=== PATIENT | female | born 1995 | race African-American/Black ===

== ENCOUNTER 2017-03-16 21:36 | Emergency (ER) | payer OTHER ==
[~2017-03-16] VITALS: Ht 165.1 cm; Wt 78.0 kg
--- NOTE | ~2017-03-16 | EKG ---
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
[~2017-03-16 21:36] MED LIST: ABILIFY20 MG; IBUPROFEN 600600 M1 PO; IBUPROFEN 800800 M1 PO; LAMICTAL 25 MG25 M1; LORATIDINE 10 M10 M1; NAPROSYN500 MG; NAPROSYN500 MG PO; PRENATAL COMPL1 EACH PO; PRENATAL VITAM1 EAC1 PO; TYLENOL W/CODEI1 TA2 PO; VENTOLIN HFA 1818 GM INH; ZOFRAN ODT4 MG PO
[2017-03-16 22:38] LABS: ABSOLUTE NEUTROPHILS 1.8 thou/uL (1.4-8.2); BASOPHILS 0.5 % (0.0-2.0); EOSINOPHILS 6.9 % (0.0-3.0); HEMATOCRIT 37.3 % (37.0-47.0); HEMOGLOBIN 12.2 gm/dL (12.0-15.0); LYMPHOCYTES 35.9 % (24.0-44.0); MCH 26.7 pg (26.0-34.0); MCHC 32.8 g/dL (28.0-37.0); MCV 81.5 fL (80.0-100.0); MONOCYTES 11.6 % (1.0-8.0); PLATELET COUNT 239 thou/uL (150-400); POLYS 45.1 % (36.0-66.0); RBC 4.58 mil/uL (4.20-5.00); RDW 13.5 % (10.5-14.5)
[2017-03-16 22:41] LABS: MANUAL DIFF NO
[2017-03-16 22:46] LABS: ANION GAP 6 mmol/L (7-16); BUN 7 mg/dL (7-18); CALCIUM 8.9 mg/dL (8.5-10.1); CHLORIDE 106 mmol/L (98-107); CO2 27 mmol/L (21-32); CREATININE 0.7 mg/dL (0.6-1.0); GLUCOSE 104 mg/dL (74-106); POTASSIUM 3.3 mmol/L (3.5-5.1); SODIUM 139 mmol/L (136-145)
[2017-03-16 22:57] LABS: ALBUMIN 3.5 g/dL (3.4-5.0); ALKALINE PHOSPHATASE 42 U/L (46-116); NT-PRO BRAIN NAT PEPTIDE 20 pg/mL (<300); SGOT 16 U/L (15-37); SGPT 12 U/L (30-65); TOTAL BILIRUBIN 0.2 mg/dL (<0.1-1.0); TOTAL PROTEIN 7.2 g/dL (6.4-8.2); TROPONIN-I < 0.04 ng/mL (<0.04-0.07)
[2017-03-17 00:07] VITALS: BP 115/57
== END 2017-03-17 00:15 | disposition home or self-care (01) ==
LOC: ER 21:36
PROVIDERS: Emergency Medicine
DX: R07.89 Other chest pain (principal); J45.909 Unspecified asthma, uncomplicated; K21.9 Gastro-esophageal reflux disease without esophagitis; Z91.018 Allergy to other foods; Z91.013 Allergy to seafood; Z88.8 Allergy status to other drugs, medicaments and biological substances

== ENCOUNTER 2017-05-17 14:28 | Emergency (ER) | payer OTHER ==
[~2017-05-17] VITALS: Ht 165.1 cm; Wt 77.1 kg
[2017-05-17] MEDS ORDERED: NAPROSYN500 MG PO (15:58)
[2017-05-17 16:15] VITALS: BP 132/41
== END 2017-05-17 16:30 | disposition home or self-care (01) ==
LOC: ER 14:28
DX: S66.911A Strain of unspecified muscle, fascia and tendon at wrist and hand level, right hand, initial encounter (principal); N64.4 Mastodynia; J45.909 Unspecified asthma, uncomplicated; F39 Unspecified mood [affective] disorder; Z91.018 Allergy to other foods; Z91.013 Allergy to seafood; Z88.8 Allergy status to other drugs, medicaments and biological substances; X58.XXXA Exposure to other specified factors, initial encounter; Y93.89 Activity, other specified; Y92.89 Other specified places as the place of occurrence of the external cause; Y99.8 Other external cause status

== ENCOUNTER 2018-04-21 11:44 | Emergency (ER) | payer OTHER ==
[~2018-04-21] VITALS: Ht 165.1 cm; Wt 72.6 kg
--- NOTE | ~2018-04-21 | EKG ---
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1995 Requested By: Shaan David Order Number: [id number] MD: Dimitrios Mitchell Measurements Intervals [place] Rate: 89 P: -79 SD: 107 QRS: 22 QRSD: 87 T: -50 QT: 360 QTc: 439 Interpretive Statements Ectopic atrial rhythm Short SD interval LVH by voltage Abnormal T, consider ischemia, diffuse leads Compared to ECG 03/16/2017 22:06:34 Ectopic atrial rhythm now present Short SD interval now present T-wave abnormality now present Electronically Signed On 04-21-2018 16:34:14 CDT by Dimitrios Mitchell [email or web address] <ELECTRONICALLY SIGNED> By: Dimitrios Mitchell MD, [facility] 04/21/18 1634 1333 1333 Dimitrios Mitchell MD, [facility] /EPI
[2018-04-21 13:00] VITALS: BP 115/70
[2018-04-21] MEDS ORDERED: AMOXICILLIN 50500 MG PO (13:34)
== END 2018-04-21 14:45 | disposition home or self-care (01) ==
LOC: ER 11:44
DX: O99.513 Diseases of the respiratory system complicating pregnancy, third trimester (principal); J02.9 Acute pharyngitis, unspecified; R07.9 Chest pain, unspecified; J45.909 Unspecified asthma, uncomplicated; K21.9 Gastro-esophageal reflux disease without esophagitis; Z91.013 Allergy to seafood; Z88.8 Allergy status to other drugs, medicaments and biological substances; Z91.018 Allergy to other foods; Z3A.29 29 weeks gestation of pregnancy

== ENCOUNTER 2019-02-18 14:18 | Emergency (ER) | payer OTHER ==
[~2019-02-18] VITALS: Ht 165.1 cm; Wt 83.9 kg
[~2019-02-18 14:18] MED LIST changes: +AMOXICILLIN 50500 MG PO
[2019-02-18 15:54] LABS: URINE BILIRUBIN NEGATIVE (Negative); URINE BLOOD 3+ (Negative); URINE CLARITY CLEAR; URINE COLOR YELLOW; URINE GLUCOSE-RANDOM* NEGATIVE (Negative); URINE KETONES NEGATIVE (Negative); URINE LEUKOCYTES-REFLEX NEGATIVE (Negative); URINE NITRITE-REFLEX NEGATIVE (Negative); URINE PROTEIN (DIPSTICK) NEGATIVE (Negative); URINE SPECIFIC GRAVITY 1.015 (1.005-1.035); URINE UROBILINOGEN 0.2 E.U./dl (0.2-1.0)
[2019-02-18 16:00] LABS: SSA (PROTEIN CONFIRMATORY) NEGATIVE (Negative)
[2019-02-18 16:02] LABS: SQUAMOUS >10 Many /LPF (0-3)
[2019-02-18 16:03] LABS: BACTERIA-REFLEX None Seen /HPF (None Seen); CASTS None Seen /LPF (None Seen); CRYSTALS None Seen /LPF (None Seen); URINE WBC-REFLEX 0-5 Rare /HPF (0-5)
[2019-02-18 16:19] LABS: ABSOLUTE NEUTROPHILS 2.4 thou/uL (1.4-8.2); BASOPHILS 0.9 % (0.0-2.0); EOSINOPHILS 4.1 % (0.0-3.0); HEMATOCRIT 38.9 % (37.0-47.0); LYMPHOCYTES 35.2 % (24.0-44.0); MCH 27.4 pg (26.0-34.0); MCHC 33.4 g/dL (28.0-37.0); MONOCYTES 9.5 % (1.0-8.0); PLATELET COUNT 307 thou/uL (150-400); POLYS 50.3 % (36.0-66.0); RBC 4.75 mil/uL (4.20-5.00); RDW 13.4 % (10.5-14.5); WBC 4.7 thou/uL (4.0-11.0)
[2019-02-18 16:22] LABS: CALCIUM 9.7 mg/dL (8.5-10.1); CREATININE 0.6 mg/dL (0.6-1.0); POTASSIUM 3.9 mmol/L (3.5-5.1)
[2019-02-18] MEDS ORDERED: NAPROSYN500 MG PO (16:26)
[2019-02-18 16:28] LABS: ALBUMIN 3.7 g/dL (3.4-5.0); TOTAL BILIRUBIN 0.3 mg/dL (<0.1-1.0); TOTAL PROTEIN 7.9 g/dL (6.4-8.2)
[2019-02-18 16:43] VITALS: BP 136/97
== END 2019-02-18 16:44 | disposition home or self-care (01) ==
LOC: ER 14:18
PROVIDERS: Physician Assistant
DX: N93.8 Other specified abnormal uterine and vaginal bleeding (principal); J45.909 Unspecified asthma, uncomplicated; K21.9 Gastro-esophageal reflux disease without esophagitis; Z91.013 Allergy to seafood; Z88.8 Allergy status to other drugs, medicaments and biological substances

== ENCOUNTER 2019-05-01 19:01 | Emergency (ER) | payer OTHER ==
[~2019-05-01] VITALS: Ht 165.1 cm; Wt 97.5 kg
[2019-05-01 19:14] VITALS: BP 146/68
[2019-05-01] MEDS ORDERED: VENTOLIN HFA 1818 GM INH (19:20)
[2019-05-01] MEDS ORDERED: ERYTHROMYCIN E3.5 G3 OPHTHALMIC (20:50)
[2019-05-01] MEDS ORDERED: ZYRTEC10 M2 PO (20:50)
[2019-05-01] MEDS ORDERED: NAPROSYN500 MG PO (20:51)
== END 2019-05-01 21:00 | disposition home or self-care (01) ==
LOC: ER 19:01
DX: H10.32 Unspecified acute conjunctivitis, left eye (principal); J45.909 Unspecified asthma, uncomplicated; K21.9 Gastro-esophageal reflux disease without esophagitis; G43.909 Migraine, unspecified, not intractable, without status migrainosus; Z91.013 Allergy to seafood; Z88.8 Allergy status to other drugs, medicaments and biological substances

== ENCOUNTER 2019-05-31 09:09 | Emergency (ER) | payer OTHER ==
[~2019-05-31] VITALS: Ht 165.1 cm; Wt 99.8 kg
[~2019-05-31 09:09] MED LIST changes: +ERYTHROMYCIN E3.5 G3 OPHTHALMIC; +ZYRTEC10 M2 PO
[2019-05-31 09:51] LABS: ABSOLUTE NEUTROPHILS 2.5 thou/uL (1.4-8.2); BASOPHILS 0.4 % (0.0-2.0); CALCIUM 9.4 mg/dL (8.5-10.1); CREATININE 0.6 mg/dL (0.6-1.0); EOSINOPHILS 3.7 % (0.0-3.0); HEMATOCRIT 41.9 % (37.0-47.0); HEMOGLOBIN 13.7 gm/dL (12.0-15.0); LYMPHOCYTES 36.3 % (24.0-44.0); MCH 26.7 pg (26.0-34.0); MCHC 32.8 g/dL (28.0-37.0); MCV 81.5 fL (80.0-100.0); MONOCYTES 7.7 % (1.0-8.0); PLATELET COUNT 310 thou/uL (150-400); POLYS 51.9 % (36.0-66.0); POTASSIUM 3.8 mmol/L (3.5-5.1); RBC 5.13 mil/uL (4.20-5.00); RDW 13.6 % (10.5-14.5); WBC 4.8 thou/uL (4.0-11.0)
[2019-05-31 09:57] LABS: ALBUMIN 3.7 g/dL (3.4-5.0); TOTAL BILIRUBIN 0.2 mg/dL (<0.1-1.0); TOTAL PROTEIN 8.5 g/dL (6.4-8.2)
[2019-05-31 10:00] LABS: URINE BILIRUBIN NEGATIVE (Negative); URINE BLOOD NEGATIVE (Negative); URINE CLARITY CLEAR; URINE COLOR YELLOW; URINE GLUCOSE-RANDOM* NEGATIVE (Negative); URINE KETONES NEGATIVE (Negative); URINE LEUKOCYTES TRACE (Negative); URINE NITRITE NEGATIVE (Negative); URINE PROTEIN (DIPSTICK) NEGATIVE (Negative); URINE UROBILINOGEN 0.2 E.U./dl (0.2-1.0)
[2019-05-31] MEDS ORDERED: BENTYL 20 MG TA20 M1 PO (11:42)
[2019-05-31] MEDS ORDERED: ONDANSETRON HCL4 M2 PO (11:42)
[2019-05-31] MEDS ORDERED: PROTONIX 20 MG20 M1 PO (11:42)
[2019-05-31 12:03] VITALS: BP 126/63
--- NOTE | 2019-06-01 08:39 | EKG ---
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1995 Requested By: Mery Eduardo Order Number: [id number] MD: Dimitrios Mitchell Measurements Intervals [place] Rate: 53 P: 14 [place]: 171 QRS: 32 QRSD: 87 T: 12 QT: 407 QTc: 383 Interpretive Statements Sinus rhythm Normal tracing Compared to ECG 04/21/2018 13:33:00 Ectopic atrial rhythm no longer present T wave abnormality no longer present Electronically Signed On 06-01-2019 8:39:24 CDT by Dimitrios Mitchell [email or web address] ��������������������������������������������� <ELECTRONICALLY SIGNED> ���������������������������������������� By: Dimitrios Mitchell MD, [facility] ��������������������������������������������� 06/01/19 0839 D: 071130 30 Dimitrios Mitchell MD, FACC /EPI
== END 2019-05-31 12:04 | disposition home or self-care (01) ==
LOC: ER 09:09
PROVIDERS: Emergency Medicine
DX: R07.89 Other chest pain (principal); R11.2 Nausea with vomiting, unspecified; R10.11 Right upper quadrant pain; J45.909 Unspecified asthma, uncomplicated; K21.9 Gastro-esophageal reflux disease without esophagitis; G43.909 Migraine, unspecified, not intractable, without status migrainosus; R10.13 Epigastric pain; Z91.018 Allergy to other foods; Z91.013 Allergy to seafood; Z88.8 Allergy status to other drugs, medicaments and biological substances; Z79.899 Other long term (current) drug therapy; Z98.890 Other specified postprocedural states

== ENCOUNTER 2019-06-14 12:08 | Emergency (ER) | payer OTHER ==
[~2019-06-14] VITALS: Ht 165.1 cm; Wt 97.5 kg
[~2019-06-14 12:08] MED LIST changes: +BENTYL 20 MG TA20 M1 PO; +ONDANSETRON HCL4 M2 PO; +PROTONIX 20 MG20 M1 PO
[2019-06-14 13:00] LABS: ABSOLUTE NEUTROPHILS 2.6 thou/uL (1.4-8.2); BASOPHILS 0.9 % (0.0-2.0); EOSINOPHILS 4.8 % (0.0-3.0); HEMATOCRIT 41.6 % (37.0-47.0); HEMOGLOBIN 13.9 gm/dL (12.0-15.0); LYMPHOCYTES 31.7 % (24.0-44.0); MCHC 33.4 g/dL (28.0-37.0); MCV 80.7 fL (80.0-100.0); MONOCYTES 4.9 % (1.0-8.0); PLATELET COUNT 322 thou/uL (150-400); POLYS 57.7 % (36.0-66.0); RBC 5.15 mil/uL (4.20-5.00); RDW 13.4 % (10.5-14.5); WBC 4.6 thou/uL (4.0-11.0)
[2019-06-14 13:09] LABS: CALCIUM 9.8 mg/dL (8.5-10.1); CREATININE 0.7 mg/dL (0.6-1.0); POTASSIUM 3.6 mmol/L (3.5-5.1)
[2019-06-14 13:15] LABS: ALBUMIN 3.9 g/dL (3.4-5.0); TOTAL BILIRUBIN 0.2 mg/dL (<0.1-1.0); TOTAL PROTEIN 8.7 g/dL (6.4-8.2)
[2019-06-14] MEDS ORDERED: CARAFATE 1 GM TA1 G1 PO (14:23)
[2019-06-14] MEDS ORDERED: NORCO 5-325 TA1 EAC1 PO (14:28)
[2019-06-14 15:07] VITALS: BP 114/76
== END 2019-06-14 15:30 | disposition home or self-care (01) ==
LOC: ER 12:08
PROVIDERS: Physician Assistant
DX: K21.9 Gastro-esophageal reflux disease without esophagitis (principal); J45.909 Unspecified asthma, uncomplicated; Z90.10 Acquired absence of unspecified breast and nipple; G43.909 Migraine, unspecified, not intractable, without status migrainosus; Z91.018 Allergy to other foods; Z88.8 Allergy status to other drugs, medicaments and biological substances; Z91.013 Allergy to seafood

== ENCOUNTER 2019-07-27 19:04 | Emergency (ER) | payer OTHER ==
[~2019-07-27] VITALS: Ht 165.1 cm; Wt 102.1 kg
[~2019-07-27 19:04] MED LIST changes: +CARAFATE 1 GM TA1 G1 PO; +NORCO 5-325 TA1 EAC1 PO
[2019-07-27 19:57] LABS: URINE BILIRUBIN NEGATIVE (Negative); URINE BLOOD NEGATIVE (Negative); URINE CLARITY CLEAR; URINE COLOR YELLOW; URINE GLUCOSE-RANDOM* NEGATIVE (Negative); URINE KETONES NEGATIVE (Negative); URINE NITRITE-REFLEX NEGATIVE (Negative); URINE PROTEIN (DIPSTICK) NEGATIVE (Negative); URINE SPECIFIC GRAVITY 1.025 (1.005-1.035)
[2019-07-27 19:58] LABS: URINE LEUKOCYTES-REFLEX 1+ (Negative)
[2019-07-27 20:11] LABS: MUCUS 4-6 Moderate strn/LPF (None Seen); SQUAMOUS 4-10 Moderate /LPF (0-3)
[2019-07-27 20:12] LABS: BACTERIA-REFLEX 1-9 Few /HPF (None Seen); CASTS None Seen /LPF (None Seen); CRYSTALS None Seen /LPF (None Seen); URINE RBC None Seen /HPF (0-2); URINE WBC-REFLEX 6-15 Few /HPF (0-5)
[2019-07-27 20:14] LABS: BASOPHILS 0.6 % (0.0-2.0); EOSINOPHILS 1.8 % (0.0-3.0)
[2019-07-27 20:16] LABS: ABSOLUTE NEUTROPHILS 6.2 thou/uL (1.4-8.2); HEMATOCRIT 35.7 % (37.0-47.0); HEMOGLOBIN 11.5 gm/dL (12.0-15.0); LYMPHOCYTES 19.3 % (24.0-44.0); MCH 26.5 pg (26.0-34.0); MCHC 32.3 g/dL (28.0-37.0); MCV 82.2 fL (80.0-100.0); PLATELET COUNT 311 thou/uL (150-400); POLYS 69.3 % (36.0-66.0); RBC 4.35 mil/uL (4.20-5.00); RDW 13.7 % (10.5-14.5)
[2019-07-27 20:22] LABS: ANION GAP 9 mmol/L (7-16); BUN 7 mg/dL (7-18); CALCIUM 9.3 mg/dL (8.5-10.1); CHLORIDE 104 mmol/L (98-107); CO2 25 mmol/L (21-32); CREATININE 0.7 mg/dL (0.6-1.0); GLUCOSE 101 mg/dL (74-106); POTASSIUM 3.2 mmol/L (3.5-5.1); SODIUM 138 mmol/L (136-145)
[2019-07-27 20:34] LABS: ALBUMIN 3.3 g/dL (3.4-5.0); DIRECT BILIRUBIN < 0.1 mg/dL (<0.1-0.3); LIPASE 134 U/L (73-393); SGOT 11 U/L (15-37); SGPT 8 U/L (30-65); TOTAL BILIRUBIN 0.2 mg/dL (<0.1-1.0); TOTAL PROTEIN 7.2 g/dL (6.4-8.2); TROPONIN-I <0.06 ng/mL (<0.06)
[2019-07-27] MEDS ORDERED: KEFLEX500 M1 PO (20:48)
[2019-07-27] MEDS ORDERED: PEPCID20 MG PO (20:48)
[2019-07-27] MEDS ORDERED: REGLAN 10 MG TA10 MG PO (20:55)
[2019-07-27 21:25] VITALS: BP 125/66
--- NOTE | 2019-07-28 11:55 | EKG ---
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1995 Requested By: Sherwin Ramirez Order Number: [id number] MD: Dimitrios Mitchell Measurements Intervals [place] Rate: 88 P: 26 [place]: 154 QRS: 46 QRSD: 86 T: 12 QT: 349 QTc: 423 Interpretive Statements Sinus rhythm Nonspecific T abnormalities, anterior leads Compared to ECG 06/14/2019 12:11:08 T-wave abnormality now present Electronically Signed On 07-28-2019 11:55:04 CDT by Dimitrios Mitchell [email or web address] ��������������������������������������������� <ELECTRONICALLY SIGNED> ���������������������������������������� By: Dimitrios Mitchell MD, [facility] ��������������������������������������������� 07/28/19 1155 D: 09/1910 10 Dimitrios Mitchell MD, FACC /EPI
== END 2019-07-27 21:25 | disposition home or self-care (01) ==
LOC: ER 19:04
PROVIDERS: Emergency Medicine
DX: R07.2 Precordial pain (principal); R10.13 Epigastric pain; F39 Unspecified mood [affective] disorder; K21.9 Gastro-esophageal reflux disease without esophagitis; J45.909 Unspecified asthma, uncomplicated; G43.909 Migraine, unspecified, not intractable, without status migrainosus; Z91.013 Allergy to seafood; Z91.018 Allergy to other foods; Z88.1 Allergy status to other antibiotic agents

== ENCOUNTER 2020-05-20 12:59 | Emergency (ER) | payer OTHER ==
[~2020-05-20] VITALS: Ht 165.1 cm; Wt 90.3 kg
[~2020-05-20 12:59] MED LIST changes: +KEFLEX500 M1 PO; +PEPCID20 MG PO; +REGLAN 10 MG TA10 MG PO
[2020-05-20] MEDS ORDERED: ZOLOFT50 M1 PO (13:26)
[2020-05-20] MEDS ORDERED: NAPROSYN500 MG PO (16:37)
[2020-05-20] MEDS ORDERED: ROBAXIN 750 MG750 MG PO (16:37)
[2020-05-20 16:45] VITALS: BP 124/88
== END 2020-05-20 16:46 | disposition home or self-care (01) ==
LOC: ER 12:59
DX: S16.1XXA Strain of muscle, fascia and tendon at neck level, initial encounter (principal); S29.012A Strain of muscle and tendon of back wall of thorax, initial encounter; S00.83XA Contusion of other part of head, initial encounter; R42 Dizziness and giddiness; J45.909 Unspecified asthma, uncomplicated; K21.9 Gastro-esophageal reflux disease without esophagitis; G43.909 Migraine, unspecified, not intractable, without status migrainosus; F39 Unspecified mood [affective] disorder; Z79.899 Other long term (current) drug therapy; Z91.018 Allergy to other foods; Z91.013 Allergy to seafood; Z88.8 Allergy status to other drugs, medicaments and biological substances; W22.01XA Walked into wall, initial encounter; Y93.89 Activity, other specified; Y92.89 Other specified places as the place of occurrence of the external cause; Y99.8 Other external cause status

== ENCOUNTER 2021-01-28 19:53 | Emergency (ER) | payer OTHER ==
[~2021-01-28] VITALS: Ht 165.1 cm; Wt 99.8 kg
[~2021-01-28 19:53] MED LIST changes: +ROBAXIN 750 MG750 MG PO; +ZOLOFT50 M1 PO
[2021-01-28] MEDS ORDERED: ULTRAM 50MG TAB50 MG PO (21:02)
[2021-01-28] MEDS ORDERED: CRUTCHES MISCELL (21:02)
[2021-01-28] MEDS ORDERED: IBUPROFEN 600600 M1 PO (21:02)
[2021-01-28 21:21] VITALS: BP 137/81
== END 2021-01-28 21:21 | disposition home or self-care (01) ==
LOC: ER 19:53
DX: S80.01XA Contusion of right knee, initial encounter (principal); J45.909 Unspecified asthma, uncomplicated; K21.9 Gastro-esophageal reflux disease without esophagitis; G43.909 Migraine, unspecified, not intractable, without status migrainosus; Z79.899 Other long term (current) drug therapy; Z88.8 Allergy status to other drugs, medicaments and biological substances; Z91.018 Allergy to other foods; Z91.013 Allergy to seafood; W18.39XA Other fall on same level, initial encounter; Y93.89 Activity, other specified; Y92.89 Other specified places as the place of occurrence of the external cause; Y99.8 Other external cause status

== ENCOUNTER 2021-03-06 11:40 | Emergency (ER) | payer OTHER ==
[~2021-03-06] VITALS: Ht 165.1 cm; Wt 103.4 kg
[~2021-03-06 11:40] MED LIST changes: +CRUTCHES MISCELL; +ULTRAM 50MG TAB50 MG PO
[2021-03-06] MEDS ORDERED: AMOXICILLIN 50500 MG PO (11:57)
[2021-03-06 12:24] LABS: ANION GAP 8 mmol/L (7-16); BUN 11 mg/dL (7-18); CALCIUM 9.2 mg/dL (8.5-10.1); CHLORIDE 104 mmol/L (98-107); CO2 27 mmol/L (21-32); CREATININE 0.7 mg/dL (0.6-1.0); GLUCOSE 107 mg/dL (74-106); HEMOGLOBIN 12.5 gm/dL (12.0-15.0); SODIUM 139 mmol/L (136-145); WBC 3.9 thou/uL (4.0-11.0)
[2021-03-06 12:26] LABS: ABSOLUTE NEUTROPHILS 1.8 thou/uL (1.4-8.2); BASOPHILS 0.9 % (0.0-2.0); LYMPHOCYTES 45.4 % (24.0-44.0); MCH 27.4 pg (26.0-34.0); MCV 83.1 fL (80.0-100.0); MONOCYTES 3.9 % (1.0-8.0); PLATELET COUNT 306 thou/uL (150-400); POLYS 45.8 % (36.0-66.0); RBC 4.57 mil/uL (4.20-5.00); RDW 13.8 % (10.5-14.5)
[2021-03-06 12:34] LABS: ALBUMIN 3.6 g/dL (3.4-5.0); LIPASE 132 U/L (73-393); SGOT 16 U/L (15-37); SGPT 20 U/L (14-59); TOTAL BILIRUBIN 0.2 mg/dL (0.2-1.0); TOTAL PROTEIN 7.9 g/dL (6.4-8.2); TROPONIN-I <0.06 ng/mL (<0.06)
[2021-03-06 14:39] VITALS: BP 132/68
--- NOTE | 2021-03-09 07:01 | EKG ---
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
== END 2021-03-06 14:40 | disposition home or self-care (01) ==
LOC: ER 11:40
PROVIDERS: Emergency Medicine
DX: R07.89 Other chest pain (principal); J45.909 Unspecified asthma, uncomplicated; K21.9 Gastro-esophageal reflux disease without esophagitis; G43.909 Migraine, unspecified, not intractable, without status migrainosus; Z91.013 Allergy to seafood; Z91.018 Allergy to other foods; Z88.6 Allergy status to analgesic agent